=== PATIENT | female | born 1950 | race Caucasian/White ===

== ENCOUNTER 2017-06-08 19:30 | Outpatient (CLI) | payer BC | END 2017-06-08 19:31 | disposition home or self-care (01) | LOC: SLEEPLAB 19:30 | PROVIDERS: ATTEND Internal Medicine Cardiovascular Disease | DX: G47.33 Obstructive sleep apnea (adult) (pediatric) (principal) | CPT/HCPCS: 95811 ==

== ENCOUNTER 2018-02-17 10:49 | Emergency (ER) | payer MEDICARE, BC ==
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
== END 2018-02-17 13:04 | disposition home or self-care (01) ==
LOC: ERS 10:49
DX: S16.1XXA Strain of muscle, fascia and tendon at neck level, initial encounter (principal); S20.219A Contusion of unspecified front wall of thorax, initial encounter; E11.9 Type 2 diabetes mellitus without complications; E11.22 Type 2 diabetes mellitus with diabetic chronic kidney disease; N18.6 End stage renal disease; F41.9 Anxiety disorder, unspecified; Z87.891 Personal history of nicotine dependence; V89.2XXA Person injured in unspecified motor-vehicle accident, traffic, initial encounter; Z79.899 Other long term (current) drug therapy
CPT/HCPCS: 71045; 72125; 93005

== ENCOUNTER 2018-07-24 07:41 | Outpatient (CLI) | payer MEDICARE, BC ==
--- NOTE | 2018-07-24 11:37 | CT ---
ABDOMEN AND PELVIC CT SCAN WITHOUT IV CONTRAST: History: 67-year-old female with chronic diarrhea and left upper quadrant pain. Fecal incontinence. Comparison: 07-27-16 FINDINGS: There are scattered linear and interstitial parenchymal changes in the visualized lower lung zones wh ich are somewhat pleural based with at least two small, less than 0.4 cm pleural based nodules on the right. These bibasilar parenchymal changes are new when compared to the 07-27-16 study and raise con cern for the possibility of bibasilar atypical pneumonia or pneumonitis or asymmetric edema. Status p ost cholecystectomy without ductal dilatation. Liver, pancreas, spleen, and adrenal glands are unrema rkable. 5.2 cm diameter exophytic mass at the lateral aspect of the left kidney with attenuation coef ficients which are higher than expected for simple cyst. This has minimally increased in size from e prior 07-27-16 study. Possibilities include that of a complicated or minimally hemorrhagic cyst calvin terry a solid mass. Given its size I think that ultrasound follow up would allow adequate characterizat ion of this mass. Several small hypodensities involving the right kidney, too small to characterize b ut statistically small cysts. Two small focal renal hyperdensities probably representing very small h emorrhagic cysts. No renal calculus or acute obstruction. Normal appearing appendix. Minimal sigmo id colon diverticulosis without diverticulitis. Minimal nonspecific anterior subcutaneous fat strandi ng below the level of the umbilicus and above the level of the pubic symphysis. Small fat containing right inguinal hernia. IMPRESSION: Left renal mass increasing in size with attenuation coefficients which are not a typical benign cyst. Ultrasound follow up examination is recommended. Small right renal hypodensities and small bilateral renal hyperdensities, evidence for small cysts, including some hemorrhagic cysts. Bilateral lower lo be interstitial and linear primarily pleural based parenchymal changes in a patchy distribution raisi ng concern for atypical pneumonia or pneumonitis. Two less than 0.4 cm pleural based nodules on the r ight side, consider nonemergent follow up chest CT scan in 12 months for further assessment. Nonspeci fic subcutaneous fat stranding and minimal cutaneous thickening in the anterior abdominal wall below the level of the umbilicus and above the level of the symphysis pubis, nonspecific. No renal calculus or obstruction. Colonic diverticulosis without diverticulitis. No CT evidence for acute appendici tis. Small uterine calcifications, evidence for tiny calcified uterine fibroids. POS: [facility]
== END 2018-07-24 07:42 | disposition home or self-care (01) ==
LOC: BICCT 07:41
PROVIDERS: ATTEND Internal Medicine Gastroenterology
DX: K52.9 Noninfective gastroenteritis and colitis, unspecified (principal); R10.12 Left upper quadrant pain; R15.2 Fecal urgency; N28.1 Cyst of kidney, acquired; R91.8 Other nonspecific abnormal finding of lung field; K57.30 Diverticulosis of large intestine without perforation or abscess without bleeding; D25.9 Leiomyoma of uterus, unspecified; Z94.1 Heart transplant status
CPT/HCPCS: 74176; 82565

== ENCOUNTER 2019-09-21 09:11 | Outpatient (CLI) | payer MEDICARE, BC ==
--- NOTE | 2019-09-21 10:29 | CT ---
CT chest noncontrast HISTORY: Lung nodule. Follow-up. COMPARISON: CT abdomen 07/24/2018. FINDINGS: Lungs are hyperinflated with scattered areas of mild scarring. A very subtle area of nodula r infiltrate is present within the lateral aspect of the posterior segment right upper lobe centered on image 56. Abutting the lateral fissure at the posterior segment right upper lobe, in an a sree not included on the prior CT abdomen, a 0.3 cm nonspecific nodule is present. No aggressive parenchymal masses. No pleural fluid or pneumothorax. Lack of contrast limits evaluation of the soft tissues. There is ca lcification within the arterial structures. No bulky mediastinal adenopathy. Within the partially visualized upper abdomen, the gallbladder surgically absent. Large left renal cyst is partially visua lized, better demonstrated on prior CT. IMPRESSION: Pulmonary hyperinflation and tiny nonspecific subpleural nodules and scarring. No aggress mima lesions are evident. Atherosclerosis.
== END 2019-09-21 09:12 | disposition home or self-care (01) ==
LOC: BICCT 09:11
PROVIDERS: ATTEND Internal Medicine Critical Care Medicine
DX: R91.1 Solitary pulmonary nodule (principal); R91.8 Other nonspecific abnormal finding of lung field; I70.0 Atherosclerosis of aorta
CPT/HCPCS: 71250

== ENCOUNTER 2021-05-08 14:26 | Inpatient (IN) | payer MEDICARE, BC ==
[~2021-05-08 14:26] MED LIST: Heparin 10,000 UNITS/ 10 ML VIAL ONE
[2021-05-08] MEDS ORDERED: Norepinephrine 8 MG/0.9% NS 250 ML ONE ×2 (14:43→19:13)
[2021-05-08 15:09] LABS: INR-International Normal Ratio 1.4; PTT 29.7 sec (22.9-36.1)
[2021-05-08 15:21] LABS: ALT (SGPT) 9 U/L (8-55); AST (SGOT) 9 U/L (5-34); Albumin 2.6 g/dL (3.4-4.8); Alkaline Phosphatase 50 U/L (40-110); BUN (Urea Nitrogen) 75 mg/dL (9.8-20.1); Bilirubin, Total 0.6 mg/dL (0.2-1.2); Calc. Creatinine Clearance 0 mL/min (70-130); Calcium 8.2 mg/dL (7.8-10.44); Chloride 106 mmol/L (98-107); Globulin 1.9 g/dL (2.4-3.5); Glucose 258 mg/dL (80-115); Potassium 4.6 mmol/L (3.5-5.1); Protein, Total 4.5 g/dL (5.8-8.1); Sodium 129 mmol/L (136-145)
[2021-05-08 15:26] LABS: Carbon Dioxide Less than 8 mmol/L (23-31)
[2021-05-08 15:32] LABS: Band 56 % (5-11); Burr Cells SLIGHT = 2-5 cells (100X) (0-1/hpf); Eosinophils 2 % (0-10); Hemoglobin 8.7 g/dL (12.0-16.0); Lymphocytes 9 % (21-51); MDiff Complete? YES; Macrocytosis SLIGHT = 6-15 cells (100X) (0-5/hpf); Mean Corpuscular Hemoglobin 33.5 pg (27.0-31.0); Monocytes 5 % (0-10); Neutrophil 24 % (42-75); Platelet Count 48 thou/uL (130-400); Platelet Morphology Comment Appears Decreased; Polychromasia SLIGHT = 2-3 cells (100X) (0-2/hpf); RBC Distribution Width 14.5 % (11.5-14.5); Reactive Lymphocytes 4 % (0-10); Red Blood Cell (RBC) Count 2.59 mill/uL (4.20-5.40); Reflex for Review?? NO; Schistocytes SLIGHT = 2-5 cells (100X) (0-1/hpf); White Blood Cell (WBC) Count 9.1 thou/uL (4.8-10.8)
[2021-05-08] MEDS ORDERED: Sodium Bicarb 50 MEQ/50 ML Abboject 8.4% SYRINGE ONE (15:47)
[2021-05-08 16:07] LABS: Actual Bicarbonate (HCO3a) 5.6 mEq/L (22-28); Analyzer IN Cardio ER; Base Excess (BEa) -20.8 mEq/L (-2.0 to +3.0); Calcium, Ionized (arterial) 1.27 mmol/L (1.12-1.30); Carboxyhemoglobin (COHb) 0.3 gm% (0.0-3.0); Hemoglobin (Hb) 10.2 g/dL (12.0-16.0); O2 Tension (PaO2), arterial 105.3 mmHg (> 80.0); Potassium - ABG Lab 4.95 mmol/L (3.70-5.30)
[2021-05-08 16:10] LABS: CO2 Tension 15.6 mmHg (35.0-45.0); pH, Arterial 7.17 (7.35-7.45)
[2021-05-08 16:11] LABS: Puncture Site RA
[2021-05-08 16:32] LABS: Acetaminophen Less than 6.0 mcg/mL (10.0-30.0); Alcohol Less than 10 mg/dL (Less than 10); Salicylate Less than 8.0 mg/dL (15.0-30.0)
[2021-05-08] MEDS ORDERED: Cefepime 2 GM VIAL ONE (17:27)
[2021-05-08 17:52] LABS: Bacteria/HPF 3+ HPF (None Seen); Bilirubin Negative (Negative); Blood, Urine Trace (Negative); Clarity Turbid (Clear); Glucose, Urine (Dipstick) 500 mg/dL (Negative); Ketone, Urine 10 mg/dL (Negative); Leukocyte Negative Leu/uL (Negative); Nitrite Negative (Negative); Protein, Urine (Dipstick) 300 mg/dL (Neg-Trace); Specific Gravity, Urine 1.013 (1.002-1.036); Squamous Epithelial None Seen HPF (0-3); Urobilinogen Normal mg/dL (Less than 2)
[2021-05-08] MEDS ORDERED: Vancomycin 1.5 GRAM/300 ML BAG 1.5 GM in Premix Bag 1 BAG IVPB SCH (18:00)
[2021-05-08] MEDS ORDERED: Bisacodyl 10 MG SUPP PR PRN (18:01)
[2021-05-08] MEDS ORDERED: Senokot S 8.6-50 MG TAB PO PRN (18:01)
[2021-05-08] MEDS ORDERED: Ondansetron PF 4 MG/2 ML Vial IVP PRN (18:01)
[2021-05-08] MEDS ORDERED: Acetaminophen 650 MG Suppository PR PRN (18:01)
[2021-05-08 18:29] LABS: Lactic Acid 3.3 mmol/L (0.5-2.2)
[2021-05-08] MEDS ORDERED: Dextrose 50% Abboject 50 ML SYRINGE SLOW IVP PRN (18:45)
[2021-05-08] MEDS ORDERED: Dextrose 5% in Water 1,000 ML IV PRN (18:45)
[2021-05-08 20:41] LABS: HBSAg Index 0.19 S/CO (0-0.99); Hep B Surf Ag Non-Reactive S/CO (NonReactive)
[2021-05-08] MEDS ORDERED: Albumin 25% 25 GM/100 ML BOT IVPB SCH (20:45)
[2021-05-08] MEDS ORDERED: D5 1/2 NS w/20 mEq KCL 1,000 ML IV PRN ×2 (20:49→20:53)
[2021-05-08] MEDS ORDERED: Electrolyte Replacement Protocol 1 EACH IVPB PRN (20:49)
[2021-05-08] MEDS ORDERED: HUMULIN R 100 UNITS in Sodium Chloride 0.9% 100 ML IVPB SCH (21:00)
[2021-05-08] MEDS ORDERED: Hydrocortisone Sod Succ/PF 100 mg/2 ml Vial IVP SCH (22:00)
[2021-05-08 22:14] LABS: Actual Bicarbonate (HCO3v) 18 mEq/L (22-28); Analyzer IN Cardio ER; Base Excess -6.9 mEq/L (-2.0 to +3.0); Calcium, Ionized (venous) 1.05 mmol/L (1.16-1.32); Chloride (VBG) 99 mmol/L (98-106); pH (venous) 7.36 (7.32-7.43)
[2021-05-08] MEDS ORDERED: Hydrocortisone Sod Succ/PF 100 mg/2 ml Vial ONE (22:14)
[2021-05-08] MEDS ORDERED: Lactated Ringer's 1,000 ML IV SCH (22:15)
[2021-05-08 22:22] LABS: Hemoglobin 9.3 g/dL (12.0-16.0); Mean Corpuscular HGB CONC 32.9 g/dL (32.0-36.0); Mean Corpuscular Hemoglobin 32.4 pg (27.0-31.0); Mean Corpuscular Volume 98.3 fL (78.0-98.0); Mean Platelet Volume 6.9 fL (7.4-10.4); Platelet Count 57 thou/uL (130-400); RBC Distribution Width 14.7 % (11.5-14.5); Red Blood Cell (RBC) Count 2.88 mill/uL (4.20-5.40); White Blood Cell (WBC) Count 4.5 thou/uL (4.8-10.8)
[2021-05-08 22:35] LABS: Albumin 3.5 g/dL (3.4-4.8)
[2021-05-08 22:36] LABS: Chloride 102 mmol/L (98-107); Potassium 3.8 mmol/L (3.5-5.1); Sodium 138 mmol/L (136-145)
[2021-05-08 22:37] LABS: Calcium 8.5 mg/dL (7.8-10.44); Glucose 265 mg/dL (80-115)
[2021-05-08 22:38] LABS: Band 45 % (5-11); Globulin 2.3 g/dL (2.4-3.5); Lymphocytes 6 % (21-51); MDiff Complete? YES; Metamyelocyte 9 % (0-0); Monocytes 12 % (0-10); Neutrophil 28 % (42-75); Platelet Morphology Comment Appears Decreased
[2021-05-08 22:39] LABS: Carbon Dioxide 17 mmol/L (23-31)
[2021-05-08 22:40] LABS: Alkaline Phosphatase 54 U/L (40-110)
[2021-05-08 22:41] LABS: Calc. Creatinine Clearance 0 mL/min (70-130)
[2021-05-08 22:42] LABS: AST (SGOT) 14 U/L (5-34); BUN (Urea Nitrogen) 47 mg/dL (9.8-20.1)
[2021-05-08 22:43] LABS: ALT (SGPT) 9 U/L (8-55)
[2021-05-08 22:49] LABS: Protein, Total 5.8 g/dL (5.8-8.1)
[2021-05-08 22:50] LABS: Anion Gap 23 mmol/L (10-20)
[2021-05-08] MEDS ORDERED: Morphine 4 MG/ML VIAL SLOW IVP SCH ×2 (23:15→23:30)
[2021-05-08] MEDS ORDERED: Morphine 4 MG/ML VIAL ONE (23:31)
[2021-05-09 01:36] LABS: Anion Gap 20 mmol/L (10-20); BUN (Urea Nitrogen) 52 mg/dL (9.8-20.1); Calc. Creatinine Clearance 0 mL/min (70-130); Carbon Dioxide 16 mmol/L (23-31); Chloride 102 mmol/L (98-107); Glucose 266 mg/dL (80-115); Potassium 3.3 mmol/L (3.5-5.1); Sodium 135 mmol/L (136-145)
[2021-05-09] MEDS ORDERED: Insulin Regular 300 UNITS/3 ML VIAL ONE (02:24)
[2021-05-09] MEDS: HumaLOG 300 UNITS/3 ML VIAL SC PRN ×2 (02:25→05:10)
[2021-05-09] MEDS ORDERED: Vancomycin HCl 750 MG in Sodium Chloride 0.9% 250 ML 250 ML IVPB SCH (03:00)
[2021-05-09] MEDS ORDERED: Vancomycin HCl 250 MG in Sodium Chloride 0.9% 100 ML IVPB SCH (03:00)
[2021-05-09] MEDS ORDERED: HOLD VANCOMYCIN FOR LEVEL >20 IVP SCH (03:00)
[2021-05-09] MEDS ORDERED: Vancomycin 1 GM in Premix Bag 1 BAG IVPB SCH (03:00)
[2021-05-09] MEDS ORDERED: Vancomycin HCl 500 MG in Sodium Chloride 0.9% 100 ML IVPB SCH (03:00)
[2021-05-09] MEDS ORDERED: Pharmacy to Dose : CEFEPIME IVPB PRN (03:36)
[2021-05-09 04:41] LABS: Hemoglobin 8.3 g/dL (12.0-16.0); Mean Corpuscular HGB CONC 32.7 g/dL (32.0-36.0); Mean Corpuscular Hemoglobin 32.2 pg (27.0-31.0); Mean Corpuscular Volume 98.4 fL (78.0-98.0); Mean Platelet Volume 7.2 fL (7.4-10.4); Platelet Count 40 thou/uL (130-400); RBC Distribution Width 14.9 % (11.5-14.5); Red Blood Cell (RBC) Count 2.57 mill/uL (4.20-5.40); White Blood Cell (WBC) Count 6.5 thou/uL (4.8-10.8)
[2021-05-09 04:59] LABS: Lactic Acid 2.9 mmol/L (0.5-2.2)
[2021-05-09 05:03] LABS: ALT (SGPT) 8 U/L (8-55); AST (SGOT) 16 U/L (5-34); Albumin 2.9 g/dL (3.4-4.8); Alkaline Phosphatase 39 U/L (40-110); Anion Gap 19 mmol/L (10-20); BUN (Urea Nitrogen) 54 mg/dL (9.8-20.1); Bilirubin, Total 0.9 mg/dL (0.2-1.2); Calc. Creatinine Clearance 0 mL/min (70-130); Calcium 8.3 mg/dL (7.8-10.44); Carbon Dioxide 18 mmol/L (23-31); Chloride 103 mmol/L (98-107); Globulin 1.9 g/dL (2.4-3.5); Glucose 232 mg/dL (80-115); Potassium 3.1 mmol/L (3.5-5.1); Protein, Total 4.8 g/dL (5.8-8.1); Sodium 137 mmol/L (136-145)
[2021-05-09] MEDS ORDERED: Hydrocortisone Sod Succ/PF 100 mg/2 ml Vial ONE (05:18)
[2021-05-09] MEDS: Hydrocortisone Sod Succ/PF 100 mg/2 ml Vial IVP SCH ×4 (05:19→21:22)
[2021-05-09 05:20] LABS: Anion Gap 19 mmol/L (10-20); BUN (Urea Nitrogen) 52 mg/dL (9.8-20.1); Calc. Creatinine Clearance 0 mL/min (70-130); Calcium 8.2 mg/dL (7.8-10.44); Carbon Dioxide 18 mmol/L (23-31); Chloride 103 mmol/L (98-107); Glucose 225 mg/dL (80-115); Sodium 137 mmol/L (136-145)
[2021-05-09 05:53] LABS: Band 60 % (5-11); Lymphocytes 15 % (21-51); MDiff Complete? YES; Metamyelocyte 7 % (0-0); Monocytes 5 % (0-10); Neutrophil 13 % (42-75); Platelet Morphology Comment Appears Decreased
[2021-05-09] MEDS ORDERED: Levothyroxine Sodium 75 MCG TAB PO SCH (06:00)
[2021-05-09] MEDS ORDERED: Sterile Water 10 ML VIAL FS PRN ×2 (06:45→07:30)
[2021-05-09] MEDS ORDERED: OLANZapine 10 MG VIAL IM SCH ×2 (06:45→07:30)
[2021-05-09] MEDS: Pantoprazole 40 MG VIAL IVP SCH ×2 (08:09→20:15)
[2021-05-09] MEDS ORDERED: Heparin 10,000 UNITS/ 10 ML VIAL ONE ×2 (10:27→12:45)
[2021-05-09 11:14] LABS: SARS-CoV-2 PCR by NAA Not Detected (NotDetected)
[2021-05-09] MEDS: cycloSPORINE, Modified 25 MG CAP PO SCH ×3 (13:57→20:25)
[2021-05-09] MEDS ORDERED: Cefepime 1 GM in Sodium Chloride 0.9% 100 ML IVPB SCH (16:00)
[2021-05-09] MEDS ORDERED: Lantus 1000 UNITS/10 ML VIAL SC SCH (20:00)
[2021-05-09] MEDS: Potassium Chloride 20 MEQ TAB PO SCH ×2 (20:14→20:27)
[2021-05-09] MEDS ORDERED: Potassium Chloride 20 MEQ in Premix Bag 1 BAG IVPB SCH (21:00)
[2021-05-10] MEDS: Hydrocortisone Sod Succ/PF 100 mg/2 ml Vial IVP SCH ×4 (03:49→21:45)
[2021-05-10 04:50] LABS: ALT (SGPT) 13 U/L (8-55); AST (SGOT) 38 U/L (5-34); Albumin 2.9 g/dL (3.4-4.8); Alkaline Phosphatase 46 U/L (40-110); Anion Gap 19 mmol/L (10-20); BUN (Urea Nitrogen) 54 mg/dL (9.8-20.1); Calc. Creatinine Clearance 0 mL/min (70-130); Calcium 8.3 mg/dL (7.8-10.44); Carbon Dioxide 19 mmol/L (23-31); Chloride 103 mmol/L (98-107); Globulin 1.9 g/dL (2.4-3.5); Glucose 145 mg/dL (80-115); Potassium 4.7 mmol/L (3.5-5.1); Protein, Total 4.8 g/dL (5.8-8.1); Sodium 136 mmol/L (136-145)
[2021-05-10 05:07] LABS: Hemoglobin 8.1 g/dL (12.0-16.0); Mean Corpuscular HGB CONC 32.9 g/dL (32.0-36.0); Mean Corpuscular Hemoglobin 32.1 pg (27.0-31.0); Mean Corpuscular Volume 97.5 fL (78.0-98.0); Mean Platelet Volume 8.5 fL (7.4-10.4); Platelet Count 22 thou/uL (130-400); RBC Distribution Width 15.4 % (11.5-14.5); Red Blood Cell (RBC) Count 2.52 mill/uL (4.20-5.40); White Blood Cell (WBC) Count 17.1 thou/uL (4.8-10.8)
[2021-05-10 05:39] LABS: Anisocytosis SLIGHT = 6-15 cells (100X) (0-5/hpf); Band 38 % (5-11); Eosinophils 1 % (0-10); Lymphocytes 11 % (21-51); MDiff Complete? YES; Metamyelocyte 2 % (0-0); Monocytes 4 % (0-10); Myelocyte 2 % (0-0); Neutrophil 42 % (42-75); Platelet Morphology Comment Appears Decreased
[2021-05-10] MEDS: Levothyroxine Sodium 50 MCG TAB PO SCH (06:35)
[2021-05-10] MEDS: Pantoprazole 40 MG VIAL IVP SCH ×2 (08:16→21:44)
[2021-05-10] MEDS: cycloSPORINE, Modified 25 MG CAP PO SCH ×2 (08:31→21:42)
[2021-05-10 08:47] LABS: Vancomycin, Random 15.5 ug/mL (See Comment)
[2021-05-10] MEDS ORDERED: Meropenem 1 GM in Sodium Chloride 0.9% 100 ML IVPB SCH (10:52)
[2021-05-10] MEDS ORDERED: Sodium Chloride 0.9% 500 ML IV SCH (11:00)
[2021-05-10] MEDS ORDERED: MEROPENEM 1 GM/50 ML 1 GM in Premix Bag 1 BAG IVPB SCH (11:30)
[2021-05-10] MEDS ORDERED: Heparin 10,000 UNITS/ 10 ML VIAL ONE (11:38)
[2021-05-10 13:41] LABS: Lactic Acid 2.1 mmol/L (0.5-2.2)
[2021-05-10] MEDS: Meropenem 500 MG in Sodium Chloride 0.9% 100 ML IVPB SCH (18:42)
[2021-05-10] MEDS: Micafungin 100 MG in Sodium Chloride 0.9% 100 ML IVPB SCH (23:43)
[2021-05-11] MEDS: Hydrocortisone Sod Succ/PF 100 mg/2 ml Vial IVP SCH ×4 (04:48→21:18)
[2021-05-11 04:51] VITALS: BMI 20.2
[2021-05-11 05:22] LABS: Hemoglobin 7.9 g/dL (12.0-16.0); Mean Corpuscular HGB CONC 32.3 g/dL (32.0-36.0); Mean Corpuscular Hemoglobin 31.9 pg (27.0-31.0); Mean Corpuscular Volume 98.8 fL (78.0-98.0); Mean Platelet Volume 8.7 fL (7.4-10.4); Platelet Count 16 thou/uL (130-400); RBC Distribution Width 15.3 % (11.5-14.5); Red Blood Cell (RBC) Count 2.47 mill/uL (4.20-5.40); White Blood Cell (WBC) Count 18.4 thou/uL (4.8-10.8)
[2021-05-11] MEDS: Levothyroxine Sodium 50 MCG TAB PO SCH (05:33)
[2021-05-11 05:38] LABS: ALT (SGPT) 17 U/L (8-55); AST (SGOT) 44 U/L (5-34); Albumin 2.9 g/dL (3.4-4.8); Alkaline Phosphatase 66 U/L (40-110); Anion Gap 24 mmol/L (10-20); BUN (Urea Nitrogen) 39 mg/dL (9.8-20.1); Bilirubin, Total 1.2 mg/dL (0.2-1.2); Calc. Creatinine Clearance 12 mL/min (70-130); Carbon Dioxide 18 mmol/L (23-31); Chloride 104 mmol/L (98-107); Glucose 183 mg/dL (80-115); Potassium 4.3 mmol/L (3.5-5.1); Protein, Total 4.9 g/dL (5.8-8.1); Sodium 142 mmol/L (136-145)
[2021-05-11 05:56] LABS: Band 35 % (5-11); Lymphocytes 10 % (21-51); MDiff Complete? YES; Monocytes 3 % (0-10); Neutrophil 52 % (42-75); Platelet Morphology Comment Appears Decreased
[2021-05-11] MEDS: cycloSPORINE, Modified 25 MG CAP PO SCH ×2 (08:28→21:19)
[2021-05-11] MEDS: Pantoprazole 40 MG VIAL IVP SCH ×2 (08:28→21:18)
[2021-05-11 13:57] LABS: Thyroid Stimulating Hormone 0.4602 uIU/mL (0.35-4.94)
[2021-05-11 14:18] LABS: Vitamin B12 Greater than 2000 pg/mL (211-911)
[2021-05-11] MEDS ORDERED: Folic Acid 1 MG TAB PO SCH (14:30)
[2021-05-11] MEDS: Meropenem 500 MG in Sodium Chloride 0.9% 100 ML IVPB SCH (18:09)
[2021-05-12] MEDS: Micafungin 100 MG in Sodium Chloride 0.9% 100 ML IVPB SCH (00:22)
[2021-05-12 04:50] LABS: Fibrinogen 472 mg/dL (253-463); INR-International Normal Ratio 1.5; Prothrombin Time 17.9 sec (12.0-14.7)
[2021-05-12 04:51] LABS: PTT 40.7 sec (22.9-36.1)
[2021-05-12 04:52] LABS: Anion Gap 24 mmol/L (10-20); BUN (Urea Nitrogen) 27 mg/dL (9.8-20.1); Calc. Creatinine Clearance 19 mL/min (70-130); Calcium 8.9 mg/dL (7.8-10.44); Carbon Dioxide 19 mmol/L (23-31); Chloride 102 mmol/L (98-107); Glucose 144 mg/dL (80-115); Potassium 3.6 mmol/L (3.5-5.1); Sodium 141 mmol/L (136-145)
[2021-05-12 05:00] LABS: D-Dimer Test 9.24 *mcg/mL (0.27-0.43)
[2021-05-12 05:18] LABS: Anisocytosis SLIGHT = 6-15 cells (100X) (0-5/hpf); Band 20 % (5-11); Hemoglobin 7.8 g/dL (12.0-16.0); Lymphocytes 11 % (21-51); MDiff Complete? YES; Macrocytosis SLIGHT = 6-15 cells (100X) (0-5/hpf); Mean Corpuscular HGB CONC 32.7 g/dL (32.0-36.0); Mean Corpuscular Hemoglobin 32.5 pg (27.0-31.0); Mean Corpuscular Volume 99.5 fL (78.0-98.0); Metamyelocyte 1 % (0-0); Monocytes 18 % (0-10); Neutrophil 48 % (42-75); Platelet Count 42 thou/uL (130-400); Platelet Morphology Comment Appears Decreased; RBC Distribution Width 15.4 % (11.5-14.5); Reactive Lymphocytes 2 % (0-10); Red Blood Cell (RBC) Count 2.39 mill/uL (4.20-5.40); White Blood Cell (WBC) Count 14.1 thou/uL (4.8-10.8)
[2021-05-12 05:39] LABS: FSP-Qualitative ABNORMAL (Normal); FSP-Semiquantitative >=20 & <40 mcg/mL (Less than 5)
[2021-05-12] MEDS: Levothyroxine Sodium 50 MCG TAB PO SCH (06:17)
[2021-05-12] MEDS: Hydrocortisone Sod Succ/PF 100 mg/2 ml Vial IVP SCH ×2 (06:20→08:52)
[2021-05-12] MEDS: cycloSPORINE, Modified 25 MG CAP PO SCH (08:51)
[2021-05-12] MEDS: Pantoprazole 40 MG VIAL IVP SCH (08:51)
[2021-05-12] MEDS ORDERED: Folic Acid 1 MG TAB PO SCH (09:00)
[2021-05-12] MEDS ORDERED: Amino Acids 4.25 %/Dextrose 5% 2,000 ML BAG IV SCH (11:31)
[2021-05-12] MEDS ORDERED: D5W-AA 4.25% with LYTES 1,000 ML IV SCH (12:00)
[2021-05-12] MEDS ORDERED: Lorazepam 2 MG/ML VIAL SLOW IVP PRN (18:03)
[2021-05-12] MEDS: Morphine 4 MG/ML VIAL SLOW IVP PRN ×2 (18:12→19:50)
[2021-05-12] MEDS: Meropenem 500 MG in Sodium Chloride 0.9% 100 ML IVPB SCH (18:46)
[2021-05-12 20:02] VITALS: BP 126/90; TEMP 97.4
[2021-05-12] MEDS ORDERED: Hydrocortisone Sod Succ/PF 100 mg/2 ml Vial IVP SCH (21:00)
[2021-05-13 17:12] LABS: Heparin-Induced Ab (HITA) 0.075 OD (0.000-0.400)
[2021-05-14 17:37] LABS: CMV DNA-PCR Test Negative (Negative)
== END 2021-05-12 21:37 | disposition hospice, inpatient (51) | DRG 871 ==
LOC: ERS 14:26 → ERHOLD 17:36 → CCU 05-09 06:54 → ONC 05-12 12:16
PROVIDERS: ADMIT Internal Medicine; ATTEND Internal Medicine
PROC: 5A1D70Z Performance of Urinary Filtration, Intermittent, Less than 6 Hours Per Day (ICD-10-PCS; principal; 2021-05-08)
PROC: 02H633Z Insertion of Infusion Device into Right Atrium, Percutaneous Approach (ICD-10-PCS; 2021-05-08)
PROC: B548ZZA Ultrasonography of Superior Vena Cava, Guidance (ICD-10-PCS; 2021-05-08)
PROC: 06HY33Z Insertion of Infusion Device into Lower Vein, Percutaneous Approach (ICD-10-PCS; 2021-05-08)
PROC: 8E0ZXY6 Isolation (ICD-10-PCS; 2021-05-08)
PROC: 30233R1 Transfusion of Nonautologous Platelets into Peripheral Vein, Percutaneous Approach (ICD-10-PCS; 2021-05-11)
PROC: 3E043XZ Introduction of Vasopressor into Central Vein, Percutaneous Approach (ICD-10-PCS; 2021-05-11)
DX: A41.9 Sepsis, unspecified organism (principal); Z66 Do not resuscitate; Z51.5 Encounter for palliative care; Z20.822 Contact with and (suspected) exposure to COVID-19; E11.10 Type 2 diabetes mellitus with ketoacidosis without coma; R65.21 Severe sepsis with septic shock; J96.01 Acute respiratory failure with hypoxia; I50.33 Acute on chronic diastolic (congestive) heart failure; N18.6 End stage renal disease; G92.8 Other toxic encephalopathy; J69.0 Pneumonitis due to inhalation of food and vomit; Z94.1 Heart transplant status; N17.9 Acute kidney failure, unspecified; I13.0 Hypertensive heart and chronic kidney disease with heart failure and stage 1 through stage 4 chronic kidney disease, or unspecified chronic kidney disease; E87.2 Acidosis; N39.0 Urinary tract infection, site not specified; E87.1 Hypo-osmolality and hyponatremia; D61.818 Other pancytopenia; F05 Delirium due to known physiological condition; F41.9 Anxiety disorder, unspecified; E03.9 Hypothyroidism, unspecified; E78.5 Hyperlipidemia, unspecified; I50.9 Heart failure, unspecified; F32.9 Major depressive disorder, single episode, unspecified; E11.22 Type 2 diabetes mellitus with diabetic chronic kidney disease; E87.6 Hypokalemia; D63.1 Anemia in chronic kidney disease; F03.90 Unspecified dementia, unspecified severity, without behavioral disturbance, psychotic disturbance, mood disturbance, and anxiety; Z90.49 Acquired absence of other specified parts of digestive tract; Z86.16 Personal history of COVID-19; Z98.51 Tubal ligation status; Z87.891 Personal history of nicotine dependence; I25.2 Old myocardial infarction; Z79.899 Other long term (current) drug therapy; Z99.2 Dependence on renal dialysis; Z88.6 Allergy status to analgesic agent; Z88.8 Allergy status to other drugs, medicaments and biological substances
CPT/HCPCS: 36415; 36416; 36430; 70450; 71045; 71250; 74177; 80048; 80053; 80158; 80202; 80307; 82010; 82607; 82746; 82805; 83605; 84443; 85025; 85362; 85379; 85384; 85610; 85730; 86850; 86900; 86901; 87040; 87086; 87340; 87449; 87497; 87899; 90935; 93005; 94760; C9113; G0257; J0692; J1644; J1720; J1815; J1956; J2060; J2185; J2248; J2270; J2358; J3370; J3480; J3490; J7030; J7070; J7120; J7515; J7520; P9035; P9047; U0003; U0005

== ENCOUNTER 2021-05-12 21:48 | Inpatient (IN) | payer OTHER ==
[2021-05-12] MEDS ORDERED: Ondansetron PF 4 MG/2 ML Vial IVP PRN (22:00)
[2021-05-12] MEDS ORDERED: Haloperidol Lactate 5 MG/ML VIAL SLOW IVP PRN (22:00)
[2021-05-12] MEDS ORDERED: Scopolamine 1.5 mg/72 hour Patch TOP PRN ×2 (22:00)
[2021-05-12] MEDS ORDERED: Lorazepam 2 MG/ML VIAL SLOW IVP PRN (22:00)
[2021-05-12] MEDS ORDERED: Acetaminophen 650 MG Suppository PR PRN (22:00)
[2021-05-12] MEDS: Morphine 4 MG/ML VIAL SLOW IVP PRN (23:08)
[2021-05-13] MEDS: Morphine 4 MG/ML VIAL SLOW IVP PRN ×5 (02:09→20:10)
[2021-05-14] MEDS: Morphine 4 MG/ML VIAL SLOW IVP PRN ×8 (02:05→23:51)
[2021-05-15] MEDS: Morphine 4 MG/ML VIAL SLOW IVP PRN ×6 (05:57→18:18)
[2021-05-15 08:55] VITALS: BP 75/54; TEMP 100.3
== END 2021-05-15 19:56 | disposition expired | DRG 951 ==
LOC: ONC 21:48
PROVIDERS: ADMIT Internal Medicine; ATTEND Internal Medicine
DX: Z51.5 Encounter for palliative care (principal); A41.9 Sepsis, unspecified organism; R65.21 Severe sepsis with septic shock; J18.9 Pneumonia, unspecified organism; N18.6 End stage renal disease; Z94.1 Heart transplant status; N17.9 Acute kidney failure, unspecified; I12.0 Hypertensive chronic kidney disease with stage 5 chronic kidney disease or end stage renal disease; G93.40 Encephalopathy, unspecified; E03.9 Hypothyroidism, unspecified; E78.5 Hyperlipidemia, unspecified; F41.9 Anxiety disorder, unspecified; D64.9 Anemia, unspecified; F32.A Depression, unspecified; E11.22 Type 2 diabetes mellitus with diabetic chronic kidney disease; Z66 Do not resuscitate; Z88.8 Allergy status to other drugs, medicaments and biological substances; Z79.899 Other long term (current) drug therapy; I25.2 Old myocardial infarction; Z90.49 Acquired absence of other specified parts of digestive tract; Z98.51 Tubal ligation status
CPT/HCPCS: J2060; J2270